=== PATIENT | female | born 1995 | race Caucasian/White ===

== ENCOUNTER 2019-05-10 16:10 | Observation (INO) | payer OTHER ==
[~2019-05-10] VITALS: Ht 165.1 cm; Wt 103.4 kg
[2019-05-10 17:53] LABS: BASOPHILS % 0.5 % (0.0-2.0); HEMATOCRIT. 38.2 % (36.0-48.0); HEMOGLOBIN. 13.4 g/dL (12.0-16.0); LYMPHOCYTES % 15.7 % (20.0-50.0); MEAN CORPUSCULAR HEMOGLOBIN 31.7 pg (28.0-32.0); MEAN CORPUSCULAR VOLUME 90.7 fL (81.0-99.0); MEAN PLATELET VOLUME 9.6 fl (7.4-10.4); MONOCYTES % 5.6 % (2.0-8.0); NEUTROPHILS % 77.2 % (40.0-76.0); PLATELET 231 x1000/uL (130-400); RED BLOOD CELL COUNT 4.21 mill/uL (4.2-5.4); RED CELL DISTRIBUTION WIDTH 12.9 % (11.6-14.6)
[2019-05-10 17:59] LABS: CHLORIDE 106 mEq/L (98-107)
[2019-05-10 18:08] LABS: INR 0.9; PARTIAL THROMBOPLASTIN TIME 26.5 sec (23.4-31.0); PROTHROMBIN TIME 9.2 sec (9.6-11.0)
[2019-05-10] MEDS ORDERED: PNV1TABL50 MT (18:19)
[2019-05-10 19:13] LABS: CLARITY URINE CLEAR (CLEAR); COLOR URINE YELLOW (YELLOW); KETONES URINE NEGATIVE (NEGATIVE); LEUKOCYTE ESTERASE URINE NEGATIVE (NEGATIVE); NITRITE URINE NEGATIVE (NEGATIVE); OCCULT BLOOD URINE NEGATIVE (NEGATIVE); PH URINE 6.5 (4.5-8.0); PROTEIN URINE NEGATIVE (NEGATIVE); SPECIFIC GRAVITY URINE 1.007 (1.005-1.030); UROBILINOGEN URINE 0.2 E.U./dL (0.2-1.0)
== END 2019-05-10 20:30 | disposition home or self-care (01) ==
LOC: 8 EST LDRP 16:10
PROVIDERS: ADMIT Obstetrics & Gynecology; ATTEND Obstetrics & Gynecology
DX: O26.893 Other specified pregnancy related conditions, third trimester (principal); R35.0 Frequency of micturition; Z3A.38 38 weeks gestation of pregnancy
CPT/HCPCS: 36415; 76815; 76818; 80053; 81003; 84550; 85025; 85384; 85610; 85730; 99281; G0378

== ENCOUNTER 2019-05-16 08:55 | Observation (INO) | payer OTHER ==
[~2019-05-16 08:55] MED LIST: PNV1TABL50 MT
== END 2019-05-16 12:00 | disposition home or self-care (01) ==
LOC: 8 EST LDRP 08:55
PROVIDERS: ADMIT Obstetrics & Gynecology; ATTEND Obstetrics & Gynecology
DX: O26.853 Spotting complicating pregnancy, third trimester (principal); O41.03X0 Oligohydramnios, third trimester, not applicable or unspecified; Z3A.39 39 weeks gestation of pregnancy
CPT/HCPCS: 76815; 76818; 99281; G0378

== ENCOUNTER 2019-05-17 00:44 | Inpatient (IN) | payer OTHER ==
[~2019-05-17] VITALS: Ht 165.1 cm; Wt 86.2 kg
[2019-05-17] MEDS ORDERED: DEXT 5%/LACTATED RINGERS 1,000 ML IV STA (01:40)
[2019-05-17] MEDS ORDERED: AMPICILLIN 2,000 MG in SODIUM CHLORIDE 0.9% 100 ML IV SCH (02:00)
[2019-05-17] MEDS ORDERED: DEXT 5%/LR + PITOCIN 20UNITS/L 1,000 ML IV ONE ×2 (02:32→04:06)
[2019-05-17 02:57] LABS: BASOPHILS % 0.2 % (0.0-2.0); HEMATOCRIT. 38.7 % (36.0-48.0); HEMOGLOBIN. 13.5 g/dL (12.0-16.0); LYMPHOCYTES % 7.5 % (20.0-50.0); MEAN CORPUSCULAR HEMOGLOBIN 31.6 pg (28.0-32.0); MEAN CORPUSCULAR VOLUME 90.4 fL (81.0-99.0); MEAN PLATELET VOLUME 10.3 fl (7.4-10.4); MONOCYTES % 2.8 % (2.0-8.0); NEUTROPHILS % 89.5 % (40.0-76.0); PLATELET 247 x1000/uL (130-400); RED BLOOD CELL COUNT 4.28 mill/uL (4.2-5.4); RED CELL DISTRIBUTION WIDTH 12.5 % (11.6-14.6)
[2019-05-17 03:13] LABS: INR 0.9; PARTIAL THROMBOPLASTIN TIME 26.2 sec (23.4-31.0); PROTHROMBIN TIME 9.1 sec (9.6-11.0)
[2019-05-17 03:16] LABS: CLARITY URINE CLEAR (CLEAR); COLOR URINE YELLOW (YELLOW); KETONES URINE 3+ (NEGATIVE); LEUKOCYTE ESTERASE URINE 1+ (NEGATIVE); NITRITE URINE NEGATIVE (NEGATIVE); OCCULT BLOOD URINE NEGATIVE (NEGATIVE); PROTEIN URINE NEGATIVE (NEGATIVE); SPECIFIC GRAVITY URINE 1.028 (1.005-1.030)
[2019-05-17 03:51] LABS: *AMPHETAMINES SCREEN URINE NEGATIVE (NEGATIVE)
[2019-05-17 03:52] LABS: *BARBITURATES SCREEN URINE NEGATIVE (NEGATIVE); *BENZODIAZEPINES SCREEN URINE NEGATIVE (NEGATIVE); *COCAINE SCREEN URINE NEGATIVE (NEGATIVE); CANNABINOID URINE SCREEN NEGATIVE (NEGATIVE); METHADONE URINE SCREEN NEGATIVE (NEGATIVE); OPIATES URINE SCREEN NEGATIVE (NEGATIVE)
[2019-05-17 03:53] LABS: PHENCYCLIDINE URINE SCREEN NEGATIVE (NEGATIVE)
[2019-05-17 04:45] VITALS: BP 115/70
[2019-05-17 04:54] LABS: HEPATITIS B SURFACE ANTIGEN NEGATIVE
[2019-05-17 05:15] VITALS: BP 118/63
[2019-05-17 05:45] VITALS: BP 111/71
[2019-05-17 07:49] VITALS: BP 109/53
[2019-05-17] MEDS ORDERED: DEXT 5%/LR + PITOCIN 20UNITS/L 1,000 ML IV SCH (07:56)
[2019-05-17] MEDS ORDERED: GLYCERIN/WITCH HAZEL LEAF MEDICATED PAD TOP PRN (08:00)
[2019-05-17] MEDS ORDERED: RHO(D) IMMUNE GLOBULIN 300 MCG/SYR IM PRN (08:00)
[2019-05-17] MEDS ORDERED: ACETAMINOPHEN WITH CODEINE 300/30MG TABLET PO PRN (08:00)
[2019-05-17] MEDS ORDERED: LANOLIN OINT 7GM TUBE TOP PRN (08:00)
[2019-05-17] MEDS ORDERED: BISACODYL 10MG SUPP PR PRN (08:00)
[2019-05-17] MEDS: SIMETHICONE 80MG TABLET CHEW PO SCH ×4 (08:32→21:21)
[2019-05-17] MEDS: ACETAMINOPHEN WITH CODEINE 300/30MG TABLET PO PRN (08:33)
[2019-05-17] MEDS: MAGNESIUM/ALUMINUM HYDROXIDE/SIMETHICONE 30ML UDC PO SCH ×3 (12:36→21:20)
[2019-05-17] MEDS: IBUPROFEN 400MG TABLET PO PRN (12:37)
[2019-05-17 15:04] VITALS: BP 105/62
[2019-05-17] MEDS: DOCUSATE SODIUM 100MG CAPSULE PO SCH (21:20)
[2019-05-17 21:41] VITALS: BP 115/78
[2019-05-18] MEDS: ACETAMINOPHEN WITH CODEINE 300/30MG TABLET PO PRN (03:03)
[2019-05-18 06:54] LABS: BASOPHILS % 0.6 % (0.0-2.0); EOSINOPHILS % 2.1 % (0.0-5.0); HEMATOCRIT. 37.1 % (36.0-48.0); HEMOGLOBIN. 12.7 g/dL (12.0-16.0); LYMPHOCYTES % 19.6 % (20.0-50.0); MEAN CORPUSCULAR HEMOGLOBIN 31.3 pg (28.0-32.0); MEAN CORPUSCULAR VOLUME 91.5 fL (81.0-99.0); MEAN PLATELET VOLUME 9.6 fl (7.4-10.4); MONOCYTES % 5.9 % (2.0-8.0); NEUTROPHILS % 71.8 % (40.0-76.0); PLATELET 220 x1000/uL (130-400); RED BLOOD CELL COUNT 4.05 mill/uL (4.2-5.4); RED CELL DISTRIBUTION WIDTH 12.9 % (11.6-14.6)
[2019-05-18 07:36] VITALS: BP 97/59
[2019-05-18] MEDS: SIMETHICONE 80MG TABLET CHEW PO SCH ×4 (08:37→21:42)
[2019-05-18] MEDS: MAGNESIUM/ALUMINUM HYDROXIDE/SIMETHICONE 30ML UDC PO SCH ×4 (08:37→21:42)
[2019-05-18] MEDS: FERROUS SULFATE 325MG TABLET PO SCH ×3 (08:38→18:00)
[2019-05-18] MEDS: IBUPROFEN 400MG TABLET PO PRN (08:38)
[2019-05-18 15:33] VITALS: BP 118/74
[2019-05-18 19:30] VITALS: BP 121/67
[2019-05-18] MEDS: DOCUSATE SODIUM 100MG CAPSULE PO SCH (21:41)
[2019-05-19 04:00] VITALS: BP 113/68
[2019-05-19] MEDS: FERROUS SULFATE 325MG TABLET PO SCH (08:08)
[2019-05-19] MEDS: SIMETHICONE 80MG TABLET CHEW PO SCH (08:08)
[2019-05-19] MEDS: IBUPROFEN 400MG TABLET PO PRN (08:08)
[2019-05-19] MEDS: MAGNESIUM/ALUMINUM HYDROXIDE/SIMETHICONE 30ML UDC PO SCH (08:09)
[2019-05-19 11:00] VITALS: BP 114/64
[2019-05-19] MEDS ORDERED: TETANUS, DIPHTHERIA, PERTUSSIS VAC/PF 0.5ML (>7YR OLD) IM ONE (12:00)
== END 2019-05-19 13:40 | disposition home or self-care (01) | DRG 560 ==
LOC: OBSVTOIN 00:44 → 8 EST LDRP 00:44 → 8EST 04:25
PROVIDERS: ADMIT Obstetrics & Gynecology; ATTEND Obstetrics & Gynecology
PROC: 10E0XZZ Delivery of Products of Conception, External Approach (ICD-10-PCS; principal; 2019-05-17)
DX: O69.81X0 Labor and delivery complicated by cord around neck, without compression, not applicable or unspecified (principal); Z37.0 Single live birth; Z3A.38 38 weeks gestation of pregnancy; Z79.899 Other long term (current) drug therapy
CPT/HCPCS: 36415; 80305; 81003; 86592; 86703; 86762; 86850; 86900; 87340; 90715; 99281; J0290; J2590; J7050